=== PATIENT | male | born 1950 | race Caucasian/White ===

== ENCOUNTER 2023-12-31 09:16 | Outpatient (CLI) | payer MEDICARE | END 2023-12-31 09:17 | disposition home or self-care (01) | LOC: CSHRAD 09:16 | PROVIDERS: ATTEND Internal Medicine Rheumatology | DX: M25.531 Pain in right wrist (principal); M25.561 Pain in right knee; M25.562 Pain in left knee; M25.831 Other specified joint disorders, right wrist; M18.9 Osteoarthritis of first carpometacarpal joint, unspecified; M19.031 Primary osteoarthritis, right wrist; M17.12 Unilateral primary osteoarthritis, left knee; M94.8X6 Other specified disorders of cartilage, lower leg; M79.89 Other specified soft tissue disorders ==